=== PATIENT | female | born 1985 | race Caucasian/White ===

== ENCOUNTER 2016-08-31 21:31 | Emergency (ER) | payer MEDICARE, MEDICAID ==
[~2016-08-31 21:31] MED LIST: CYCLOBENZAPRINE10 M1 PO; GEODON80 MG PO; HYDROXYZINE HCL25 MG; IBUPROFEN600 M1 PO; LAMOTRIGINE150 M1 PO; LORTAB 5-325 M1 EAC1 PO; NEURONTIN100 MG PO; NEURONTIN400 M1 PO; NORCO 10-325 T1 EACH PO; NORCO 5-325 TA1 EACH PO; NORCO 5/325 TAB1 TAB PO; OMEPRAZOLE20 M4 PO; PAROXETINE HCL40 MG; PHENERGAN25 M1 PO; QUETIAPINE FUM400 M1 PO; QUETIAPINE FUMA50 M1 PO; SERTRALINE HCL100 M1 PO; SERTRALINE HCL100 M5 PO; VITAMIN D-1000 UNIT2 GT; VYVANSE10 MG; VYVANSE40 M1 PO; [UNRECOGNIZED DRUG - OTHER]
[2016-08-31] MEDS ORDERED: GLUCOPHAGE1000 M1 PO (22:29)
[2016-08-31] MEDS ORDERED: NORCO 5/3251 TAB PO (22:47)
[2016-08-31] MEDS ORDERED: CYCLOBENZAPRINE10 M1 PO (22:47)
== END 2016-08-31 23:14 ==
LOC: EDMED 21:31
DX: M54.6 Pain in thoracic spine (principal); G89.29 Other chronic pain; F32.9 Major depressive disorder, single episode, unspecified; F41.9 Anxiety disorder, unspecified; E66.01 Morbid (severe) obesity due to excess calories; Z79.899 Other long term (current) drug therapy
CPT/HCPCS: J1170